=== PATIENT | female | born 1965 | race African-American/Black ===

== ENCOUNTER 2016-11-29 12:00 | Inpatient (IN) ==
[2016-11-29] MEDS ORDERED: APRESOLINE IV ONE (12:19)
[2016-11-29 12:34] LABS: MANUAL DIFF NEEDED? NO
[2016-11-29 12:35] LABS: BASO% 0.3 % (0.0-0.8); EOS# 0.19 X1000 (0.0-0.7); EOS% 2.6 % (0.0-10.0); HEMATOCRIT 44.8 % (37.0-47.0); HEMOGLOBIN 15.2 g/dL (12.0-16.0); IMM GRAN# 0.02 X1000 (0.0-0.04); IMM GRAN% 0.3 % (0.0-0.5); LYMPH# 2.33 X1000 (1.2-3.4); MCH 29.3 PG (27-31); MCHC 33.9 g/dL (33-37); MCV 86.5 FL (81-99); MONO% 9.6 % (1.7-9.3); MPV 11.5 FL (7.4-10.4); NEUT% 55.2 % (42.2-75.2); PLT 215 X1000 (130-400); RBC 5.18 XMIL (4.2-5.4)
--- NOTE | 2016-11-29 12:43 | Diag Imaging Result Doc PS360 ---
EXAM: CHEST-2 VIEWS HISTORY: CHF/elevated BP TECHNIQUE: PA and lateral COMMENT: There is no evidence of acute cardiac or pulmonary disease. Compared to 08/30/2016 there is been no significant change in the appearance of the chest. IMPRESSION: Stable chest. Electronically signed by Rojas Sullivan 11/29/2016 12:40 PM
--- NOTE | 2016-11-29 13:04 | EKG Report ---
Test Performed on : 11/29/2016 12:43:48 PM Test Reason : CP Blood Pressure : / mmHG Vent. Rate : 067 BPM Atrial Rate : 067 BPM P-R Int : 136 ms QRS Dur : 072 ms QT Int : 424 ms P-R-T Axes : 069 002 184 degrees QTc Int : 448 ms Normal sinus rhythm. Biatrial enlargement T wave abnormality, consider inferolateral ischemia Abnormal ECG When compared with ECG of 30-AUG-2016 10:00, Inverted T waves have replaced nonspecific T wave abnormality in Inferior leads Unconfirmed Result
[2016-11-29 13:13] LABS: ALBUMIN 4.1 g/dL (3.5-5.0); CALCIUM 9.7 mg/dL (8.8-10.2); POTASSIUM 3.9 mmol/L (3.5-5.1); TOTAL BILIRUBIN 0.5 mg/dL (0.20-1.00); TOTAL PROTEIN 8.1 g/dL (6.3-8.3)
[2016-11-29 13:32] LABS: CK INDEX 1.2 (0.0-2.5); CK-MB 2.54 ng/mL (0.0-5.0)
[2016-11-29] MEDS ORDERED: LABETALOL IV ONE (13:44)
--- NOTE | 2016-11-29 13:47 | PROVIDER DOCUMENTATION ---
This chart was entered by Wendy Castro Scribe, acting as scribe for Bette Corea MD. HPI-Cardiac General - General Chief Complaint: B/P Problems Stated Complaint: B/P PROB Time Seen by Provider: 11/29/16 12:08 Source: patient Allergies/Adverse Reactions: Patient Allergies Allergy/AdvReac Type Severity Reaction Status Date / Time Sulfa (Sulfonamide Allergy Unknown Verified 04/17/16 02:02 Antibiotics) Home Medications: Home Medication List Medication Instructions Recorded Confirmed Last Taken Type Clonidine [Catapres] 0.1 mg PO BID 01/15/13 04/17/16 1 Day Ago History Amlodipine [Norvasc] 10 mg PO DAILY #30 tablet 03/24/14 04/17/16 1 Day Ago Rx Alprazolam 1 mg PO BID 01/13/16 04/17/16 1 Day Ago History Meloxicam [Mobic] 15 mg PO DAILY #30 tablet 01/13/16 04/17/16 1 Day Ago Rx Clonidine HCl 0.1 mg PO TID PRN #30 tablet 03/17/16 04/17/16 Unknown Rx Amlodipine Besylate [Norvasc] 10 mg PO DAILY #30 tablet 04/17/16 Unknown Rx Clonidine HCl 0.2 mg PO Q8-12H PRN PRN #60 tablet 04/17/16 Unknown Rx Methylprednisolone [Medrol Dosepak] 4 mg PO DIRECTED #1 package 04/17/16 Unknown Rx Methylprednisolone 4 mg PO DIRECTED #21 tab.ds.pk 06/04/16 Unknown Rx Methylprednisolone [Medrol Dosepak] 4 mg PO DIRECTED #1 package 07/07/16 Unknown Rx Hydroxyzine HCl 25 mg PO DAILY #20 tablet 10/25/16 Unknown Rx - History of Present Illness-Cardiac Nature of Presenting Problem: 51 yo F presents to the ER with complaint of elevated BP and CP. Pt was sent from Dr. Jay's office. BP at PCP office was 206/135, was given a clonodine. Pt states she has some mild substernal CP associated. States she has a hx of aneurism and stroke. Onset/Duration: this morning Timing: intermittent Recent use of:: reports: no stimulants Nitro Today/Relief: reports: no nitro taken today Aspirin Treatment Today: reports: no aspirin today Prior Chest Pain/Cardiac Workup: reports: stress test Associated Symptoms: denies: abdominal pain, fever/chills, shortness of breath Review of Systems - Adult - REVIEW OF SYSTEMS - ADULT Constitutional: denies: chills, fever Eyes: reports: no symptoms reported Ears, Nose, Mouth & Throat: reports: no symptoms reported Cardiovascular: reports: chest pain. denies: palpitations Respiratory: denies: cough, shortness of breath Gastrointestinal: denies: diarrhea, nausea, vomiting Genitourinary: reports: no symptoms reported Musculoskeletal: reports: no symptoms reported Integumentary: reports: no symptoms reported Neurological: reports: no symptoms reported Psychiatric: reports: no symptoms reported Endocrine: reports: no symptoms reported Hematologic/Lymphatic: reports: no symptoms reported Allergic/Immunologic: reports: no symptoms reported All Other Systems: Reviewed and Negative Past History - Adult - PAST MEDICAL HISTORY-ADULT Review of Records: reports: Nursing Assessment Review, Medications Reviewed Cardiovascular: reports: CHF, HTN, hyperlipidemia Gastrointestinal: reports: GERD Neurological: reports: other (brain aneurysm) Psychiatric: reports: anxiety - PRIOR SURGERIES/PROCEDURES Surgical/Procedure History: reports: hysterectomy, BTL, other (brain aneurysm) - IMMUNIZATION STATUS Childhood Immunizations: See Nurse Assessment Flu Vaccine: See Nurse Assessment Physical Exam-General - PHYSICAL EXAM-ADULT Initial Vital Signs Reviewed: Yes - CONSTITUTIONAL General Appearance: alert, no apparent distress - EYES Eyes: PERRL/EOMI, pink conjunctivae - HEAD, EARS, NOSE, MOUTH & THROAT HENMT: normocephalic/atraumatic, normal ENT inspection - NECK Neck: supple, normal inspection - RESPIRATORY Respiratory: no respiratory distress, no accessory muscle use - CARDIOVASCULAR Cardiovascular: normal peripheral pulses, regular rate, rhythm. negative: no edema (mild to bilat LE) - MUSCULOSKELETAL Back Exam: no CVA tenderness, no vertebral tenderness Extremity: normal range of motion, non-tender, normal gait, normal inspection - SKIN Integumentary: normal color, warm/dry - NEUROLOGIC Neurologic: grossly normal, no motor/sensory deficits - PSYCHIATRIC Psych/Mental Status: normal mood/affect, normal thought content, normal thought process, oriented x 3 Progress - PLAN OF CARE/RESULTS Progress/Plan/Lab Results: Vital Signs - 8 hr 11/29/16 12:04 Temperature 98 F Pulse Rate 79 Respiratory Rate 20 Blood Pressure 175/131 O2 Sat by Pulse Oximetry 96 Laboratory Results - last 24 hr 11/29/16 11/29/16 11/29/16 12:23 12:23 12:23 WBC RBC Hgb Hct MCV MCH MCHC RDW Std Deviation Plt Count MPV Immature Gran % (Auto) Neut % (Auto) Lymph % (Auto) [place] % (Auto) Eos % (Auto) Baso % (Auto) Immature Gran # (Auto) Neut # (Auto) Lymph # (Auto) [place] # (Auto) Eos # (Auto) Baso # (Auto) Sodium 139 Potassium 3.9 Chloride 102 Carbon Dioxide 24 L Anion Gap 14 BUN 25 H Creatinine 1.3 H Estimated GFR/1.73 m2 43 BUN/Creatinine Ratio 19 Glucose 95 Calculated Osmolality 282 Calcium 9.7 Magnesium 2.0 Total Bilirubin 0.50 AST 25 ALT 21 Alkaline Phosphatase 59 Creatine Kinase 219 H Creatine Kinase Index 1.2 CK-MB (CK-2) 2.54 Troponin T 0.010 Etp-U-Qubjsbnfdmg Pept 532 H Total Protein 8.1 Albumin 4.1 Globulin 4.0 Albumin/Globulin Ratio 1.0 11/29/16 12:23 WBC 7.28 RBC 5.18 Hgb 15.2 Hct 44.8 MCV 86.5 MCH 29.3 MCHC 33.9 RDW Std Deviation 14.5 Plt Count 215 MPV 11.5 H Immature Gran % (Auto) 0.3 Neut % (Auto) 55.2 Lymph % (Auto) 32.0 [place] % (Auto) 9.6 H Eos % (Auto) 2.6 Baso % (Auto) 0.3 Immature Gran # (Auto) 0.02 Neut # (Auto) 4.02 Lymph # (Auto) 2.33 [place] # (Auto) 0.70 H Eos # (Auto) 0.19 Baso # (Auto) 0.02 Sodium Potassium Chloride Carbon Dioxide Anion Gap BUN Creatinine Estimated GFR/1.73 m2 BUN/Creatinine Ratio Glucose Calculated Osmolality Calcium Magnesium Total Bilirubin AST ALT Alkaline Phosphatase Creatine Kinase Creatine Kinase Index CK-MB (CK-2) Troponin T Wik-[id number]-[id number] Pept Total Protein Albumin Globulin Albumin/Globulin Ratio Orders Category Date Time Status Cardiac Monitoring DIRECTED Care 11/29/16 12:10 Active Saline Loc NOW Care 11/29/16 12:10 Active CHEST-2 VIEWS [RAD] Stat Exams 11/29/16 12:10 Completed CBC WITH ELECTRONIC DIFF [HEME] Stat Lab 11/29/16 12:23 Completed CK PROFILE [SP CHEM] Stat Lab 11/29/16 12:23 Completed COMPREHENSIVE METABOLIC PANEL [CHEM] Stat Lab 11/29/16 12:23 Completed MAGNESIUM [CHEM] Stat Lab 11/29/16 12:23 Completed PRO B-NATRIURETIC PEPTIDE Stat Lab 11/29/16 12:23 Completed TROPONIN T Stat Lab 11/29/16 12:[address] W/POSS RFLX CULT [URINALYSIS] Stat Lab 11/29/16 12:09 Uncollected Hydralazine [Apresoline] Med 11/29/16 12:19 Discontinued 20 mg IV NOW ONE Labetalol Med 11/29/16 13:44 Discontinued 15 mg IV NOW ONE EKG [EKG] Stat Ther 11/29/16 12:10 Draft Result Diagrams: 11/29/16 12:23 11/29/16 12:23 - XRAY 1 XRAY Study: Chest Impression: Normal (stable chest, per radiologist) - CONSULTS/PCP/HOSPITALIST Notification #1 *Consult/PCP/Hospitalist*: Dr. Burgos Time Discussed: 13:47 Consult Disposition: Will see in ED, Admit Departure - Departure Date of Disposition Decision: 11/29/16 Time of Disposition Decision: 13:47 DIAGNOSIS: Chest pain, Hypertensive urgency Disposition: ADMITTED INPATIENT 09 Certified Medical Emergency: Emergent Condition: Stable Referrals and Follow-Ups: Mahad Hyde MD [Primary Care Provider] - - Critical Care Note This patient required my direct & personal management of CC.: No This chart was documented by the indicated scribe, (Wendy Castro Scribe) and accurately reflects the services I performed and decisions made by me, Bette Corea MD, as attested by the provider's signature.
[2016-11-29 15:01] LABS: BILIRUBIN URINE NEGATIVE (NEGATIVE); BLOOD URINE TRACE (NEGATIVE); CLARITY CLEAR (CLEAR); COLOR YELLOW; GLUCOSE URINE NEGATIVE (NEGATIVE); LEUKOCYTES URINE 2+ (NEGATIVE); NITRITE URINE NEGATIVE (NEGATIVE); PROTEIN URINE 2+(100 mg/dL) mg/dL (NEGATIVE); UROBILINOGEN URINE NORMAL
[2016-11-29 15:31] LABS: URINE CULTURE PL NEEDED? YES; URINE EPITHELIAL CELLS >10 /HPF (<10); URINE RBC <10 /HPF (<10)
[2016-11-29 15:33] LABS: URINE CAST NONE SEEN /LPF; URINE CRYSTAL NONE SEEN /HPF; URINE SMALL ROUND CELLS TRANSITIONAL PRESENT; URINE SOURCE CLEAN CATCH
[2016-11-29] MEDS ORDERED: XANAX PO PRN (18:18)
[2016-11-29] MEDS ORDERED: APRESOLINE IV PRN (18:19)
[2016-11-29] MEDS ORDERED: TYLENOL PO PRN (21:13)
[2016-11-29] MEDS: CATAPRES PO SCH (21:30)
[2016-11-30] MEDS: CATAPRES PO SCH (05:59)
[2016-11-30 07:05] LABS: HEMATOCRIT 45.4 % (37.0-47.0); HEMOGLOBIN 14.9 g/dL (12.0-16.0); MCH 28.7 PG (27-31); MCHC 32.8 g/dL (33-37); MCV 87.3 FL (81-99); MPV 11.8 FL (7.4-10.4); RBC 5.2 XMIL (4.2-5.4)
[2016-11-30 07:20] LABS: AGAP 15; ALBUMIN 3.7 g/dL (3.5-5.0); ALKALINE PHOSPHATASE 50 U/L (32-104); BUN 26 mg/dL (8-22); CALCIUM 9.4 mg/dL (8.8-10.2); CHLORIDE 99 mmol/L (98-107); COSMO 277; GOT 21 U/L (10-30); GPT 19 U/L (10-36); HDL 44 mg/dL (45-65); LDL 95 mg/dL; POTASSIUM 3.5 mmol/L (3.5-5.1); SODIUM 136 mmol/L (136-145); TCO2 22 mmol/L (25-35); TOTAL PROTEIN 7.3 g/dL (6.3-8.3); TRIGLYCERIDES 82 mg/dL (35-135); VLDL 16 mg/dL
[2016-11-30 07:32] VITALS: BP 128/91
[2016-11-30] MEDS ORDERED: HYDROCHLOROTHIAZIDE PO SCH (09:00)
[2016-11-30] MEDS ORDERED: PRINIVIL PO SCH (09:00)
--- NOTE | 2016-11-30 12:16 | HISTORY AND PHYSICAL ---
PRIMARY CARE PHYSICIAN: Dr. Mahad Hyde. CHIEF COMPLAINT: "My blood pressure is high." HISTORY OF PRESENT ILLNESS: This is a 51-year-old female who presented to the emergency room from Dr. Hyde's office after being found have to have a blood pressure of 206/135. She was given a clonidine in his office. On arrival to the emergency room her blood pressure was 175/131. She was given IV labetalol as well as Apresoline in the ER. Blood pressures did decrease and over the last 12 hours she has ranged in the 120s/80s. She did have some substernal chest pain when pressure was high, but she stated that by the time she got to the emergency room, the chest pain had resolved. Troponin was negative. She is being admitted for further evaluation and treatment. PAST MEDICAL HISTORY: Hypertension, congestive heart failure, gastroesophageal reflux disease and hyperlipidemia. PAST SURGICAL HISTORY: Hysterectomy, tubal ligation, brain aneurysm. SOCIAL HISTORY: She smokes about half a pack a day. She has occasional alcohol use. She does use marijuana. ALLERGIES: Sulfa with unknown reaction. HOME MEDICATIONS: Clonidine, Xanax, Prinivil and hydrochlorothiazide. REVIEW OF SYSTEMS: A 14 point review of systems is discussed with the patient with pertinent positives stated in HPI. She denied any palpitations, syncope, dizziness, cough, fever, chills, PND, orthopnea, nausea, vomiting, diarrhea, constipation, black or bloody vomitus, black or bloody stools, hematuria. PHYSICAL EXAMINATION: VITAL SIGNS: Blood pressure is 123/80, with a heart rate of 71, respirations are 20, temperature is 97.6 degrees with room air saturations of 98-100%. HEENT: Head is normocephalic, atraumatic. Pupils equal, round, react to light. EOMs are intact. Sclerae anicteric. Mucous membranes are moist. NECK: Supple. Trachea midline. CARDIOVASCULAR: Regular rate and rhythm. S1 and S2 appreciated. PULMONARY: Breath sounds are clear with no increased work of breathing noted. GASTROINTESTINAL: Abdomen is soft, nontender, nondistended with bowel sounds in all 4 quadrants. EXTREMITIES: No clubbing, cyanosis. She does have some trace pretibial edema bilateral. NEUROLOGIC: She is alert and oriented x3. DIAGNOSTICS: WBC is 7.2, with hemoglobin 15.2, hematocrit 44.8, and platelets of 215,000. Sodium is 139, potassium 3.9, BUN 25, creatinine 1.3 with a glucose of 95. Troponin is less than 0.010. Urinalysis revealed negative nitrites with less than 10 microscopic red blood cells, 10-20 microscopic white blood cells, and 2+ bacteria. Urine culture is pending. Chest x-ray revealed a stable chest with no acute pathology. ASSESSMENT: 1. Hypertensive urgency. 2. Hypertension. 3. History of congestive heart failure. 4. Gastroesophageal reflux disease. 5. Chronic kidney disease. PLAN: She will be admitted to the hospital, placed on telemetry. We will identify her home medications and continue as appropriate. We will trend labs in the morning. Further treatments pending hospital course. Dictated by TIGRE Doe for Xander Burgos MD cc: TIGRE Doe MD
--- NOTE | 2016-12-01 08:08 | DISCHARGE SUMMARY ---
ADMISSION DATE: 11/29/2016 DISCHARGE DATE: 11/30/2016 DIAGNOSES: 1. Hypertensive urgency. 2. Chest pain, resolved. 3. History of congestive heart failure. 4. Gastroesophageal reflux disease. 5. Hyperlipidemia. 6. Chronic kidney disease. DIAGNOSTICS: Chest x-ray revealed no evidence of acute cardiac or pulmonary disease. HOSPITAL COURSE: Ms. Manjarrez presented to the emergency room from her primary care physician's office after being found to have a blood pressure of 206/135. She was given clonidine at the doctor's office, and her initial blood pressure was 175/131. She was given labetalol IV as well as hydralazine IV in the emergency room and blood pressures did slowly decrease, and she has been in the 120s/60s to 80s in the last 12 hours. She stated that her chest pain resolved shortly after arriving in the emergency room. She has had no further chest pain. LABORATORY DATA: She did have a creatinine of 1.3. On review of her old records, her creatinine looks like 1.2-1.7 over the last 3 years. DISCHARGE PHYSICAL EXAMINATION: Cardiovascular: Regular rate and rhythm. S1 and S2 appreciated. Pulmonary: Breath sounds are clear with no increased work of breathing noted. Gastrointestinal: Abdomen is soft, nontender, nondistended. Bowel sounds in all 4 quadrants. Extremities: No clubbing, cyanosis, or edema. Calves are nontender. Pulses are palpable x4. DISCHARGE MEDICATIONS: 1. Clonidine 0.1 mg p.o. 3 times a day. 2. Xanax 1 mg p.o. b.i.d. 3. Prinivil 40 mg p.o. daily. 4. Hydrochlorothiazide 25 mg p.o. daily. DISCHARGE ACTIVITY: As tolerated. DISCHARGE FOLLOWUP: She is to follow up with her primary care physician in 1-2 weeks. She is being discharged home in stable condition with family members. TIME SPENT: This is a greater than 30 minute discharge. Dictated by TIGRE Doe for Xander Burgos MD cc: TIGRE Doe MD
== END 2016-11-30 09:47 | disposition home or self-care (01) ==
LOC: P.ED 12:00 → P.MEDSURG 17:12
PROVIDERS: ATTEND Family Medicine

== ENCOUNTER 2018-10-22 12:47 | Inpatient (IN) ==
[2018-10-22 14:06] LABS: BASO# 0.02 X1000 (0.0-0.2); BASO% 0.2 % (0.0-0.8); EOS# 0.15 X1000 (0.0-0.7); EOS% 1.8 % (0.0-10.0); HEMATOCRIT 40.7 % (37.0-47.0); HEMOGLOBIN 13.7 g/dL (12.0-16.0); IMM GRAN# 0.01 X1000 (0.0-0.04); IMM GRAN% 0.1 % (0.0-0.5); LYMPH# 2.58 X1000 (1.2-3.4); MCH 28.6 PG (27-31); MCHC 33.7 g/dL (33-37); MONO# 0.77 X1000 (0.11-0.59); MONO% 9.3 % (1.7-9.3); MPV 12.9 FL (7.4-10.4); NEUT# 4.78 X1000 (1.4-6.5); NEUT% 57.6 % (42.2-75.2); PLT 236 X1000 (130-400); RBC 4.79 XMIL (4.2-5.4); RDW 14.5 % (11.5-14.5); WBC 8.31 X1000 (4.8-10.8)
--- NOTE | 2018-10-22 14:15 | EKG Report ---
Test Performed on : 10/22/2018 1:02:41 PM Test Reason : ? PAPLPITATIONS Blood Pressure : / mmHG Vent. Rate : 066 BPM Atrial Rate : 066 BPM P-R Int : 144 ms QRS Dur : 126 ms QT Int : 482 ms P-R-T Axes : 102 -21 188 degrees QTc Int : 505 ms Normal sinus rhythm. Left ventricular hypertrophy with QRS widening and repolarization abnormality Inferior infarct , age undetermined Cannot rule out Anterior infarct , age undetermined Abnormal ECG When compared with ECG of 18-APR-2018 08:55, Significant changes have occurred Unconfirmed Result
[2018-10-22] MEDS ORDERED: NITROGLYCERIN SL ONE (14:38)
[2018-10-22 14:39] LABS: ALBUMIN 3.4 g/dL (3.5-5.0); CALCIUM 8.8 mg/dL (8.8-10.2); CREATININE 1.9 mg/dL (0.5-0.9); POTASSIUM 3.7 mmol/L (3.5-5.1); TOTAL BILIRUBIN 0.2 mg/dL (0.20-1.00); TOTAL PROTEIN 7.2 g/dL (6.3-8.3)
[2018-10-22] MEDS ORDERED: VASOTEC IV ONE (14:39)
--- NOTE | 2018-10-22 15:48 | Diag Imaging Result Doc PS360 ---
EXAM: CHEST-PORTABLE HISTORY: dyspnea TECHNIQUE: Single view of the chest was performed portably. COMPARISON: 06/25/2018 FINDINGS: The cardiomediastinal silhouette is within normal limits for portable exam.. The pulmonary vasculature is not congested. There is mild interstitial prominence similar to prior study. No focal infiltrate, effusion, or pneumothorax is appreciated. IMPRESSION: Stable mild interstitial prominence. No acute cardiopulmonary abnormality is identified. Electronically signed by Yael Esposito 10/22/2018 3:46 PM
[2018-10-22] MEDS ORDERED: APRESOLINE IV ONE (16:34)
[2018-10-22] MEDS ORDERED: LABETALOL IV ONE ×2 (17:26→17:45)
--- NOTE | 2018-10-22 18:00 | Diag Imaging Result Doc PS360 ---
EXAM: CT HEAD W/O CONTRAST INDICATION: elevated blood pressure, blurry vision TECHNIQUE: This exam was performed using automated exposure control, adjustment of mA or kV according to patient size, and/or use of iterative reconstruction technique. COMPARISON: 12/16/2016 FINDINGS: There is a pterional craniectomy defect on the left and an aneurysm clip adjacent to the anterior clinoid on the left, stable. There is no definite acute infarct given the limited sensitivity of CT versus MRI. There is no discrete intracranial mass, mass effect, or intracranial hemorrhage. Surrounding soft tissues are grossly unremarkable. Aside from the craniectomy defect, the calvaria is intact. IMPRESSION: Stable CT head with no evidence of acute intracranial pathology. Electronically signed by Waqas Rich 10/22/2018 5:58 PM
[2018-10-22] MEDS ORDERED: MORPHINE IV ONE (18:54)
[2018-10-22] MEDS ORDERED: ZOFRAN IV ONE (18:54)
--- NOTE | 2018-10-22 19:22 | PROVIDER DOCUMENTATION ---
This chart was entered by Michelle Chand Scribe, acting as scribe for Jessica Blanco MD. HPI-General Adult - General Chief Complaint: General Adult Stated Complaint: DR HYDE REF- Time Seen by Provider: 10/22/18 13:06 Source: patient Allergies/Adverse Reactions: Patient Allergies Allergy/AdvReac Type Severity Reaction Status Date / Time Sulfa (Sulfonamide Allergy Unknown Verified 06/25/18 11:45 Antibiotics) Home Medications: Home Medication List Medication Instructions Recorded Confirmed Last Taken Type Alprazolam 1 mg PO TID 11/29/16 06/25/18 06/25/18 07:00 History Clonidine HCl 0.1 mg PO TID 11/29/16 06/25/18 06/25/18 07:00 History Hydrochlorothiazide 25 mg PO QAM #90 tablet 11/30/16 06/25/18 06/25/18 07:00 Rx Amlodipine Besylate 10 mg PO DAILY 10/11/17 06/25/18 06/25/18 07:00 History Azithromycin [Zithromax Z-Jeremy] 250 mg PO DIRECTED #1 pkg 06/25/18 Unknown Rx D-Methorphan/P-Epd/Bpm [Bromfed Dm 5 ml PO Q4H PRN #120 ml 06/25/18 Unknown Rx Liquid] Methylprednisolone [Medrol Dosepak] 1 packet PO DIRECTED #1 pkg 06/25/18 Unknown Rx - History of Present Illness -Gen Adult Nature of Presenting Problems: Pt is 53/F presenting to ED from Dr. Talbert's office. He told her that her BP was high and that she was having palpitations. Pt has hx of CHF. She sts in ED that she has been having SOB w/ any exertion for the last 2 weeks. Location of Pain/Injury: reports: other (SOB) Pain Radiation: reports: no radiation Quality of Pain: reports: none Severity: reports: moderate Onset/Duration: reports: other (2 weeks) Timing: reports: still present Context/Activities at Onset: reports: none Modifying Factors: improves with: nothing Associated Symptoms: reports: shortness of breath. denies: chest pain, cough, dizziness, EENT symptoms, fever/chills, syncope, vomiting Similar Symptoms Previously?: Yes Recently seen or treated by another doctor?: Yes Review of Systems - Adult - REVIEW OF SYSTEMS - ADULT Constitutional: reports: no symptoms reported. denies: chills, fever Eyes: reports: no symptoms reported Ears, Nose, Mouth & Throat: reports: no symptoms reported Cardiovascular: reports: no symptoms reported Respiratory: reports: no symptoms reported, shortness of breath. denies: cough, wheezing Gastrointestinal: denies: no symptoms reported Genitourinary: reports: no symptoms reported Musculoskeletal: reports: no symptoms reported Integumentary: reports: no symptoms reported Neurological: reports: no symptoms reported. denies: dizziness/vertigo, headache/migraines Psychiatric: reports: no symptoms reported Endocrine: reports: no symptoms reported Hematologic/Lymphatic: reports: no symptoms reported Allergic/Immunologic: reports: no symptoms reported All Other Systems: Reviewed and Negative Past History - Adult - PAST MEDICAL HISTORY-ADULT Review of Records: reports: Old Records Reviewed, Nursing Assessment Review, Medications Reviewed, Social history reviewed & non-contributory. Major Childhood Illnesses: reports: denies history Cardiovascular: reports: CHF, HTN, hyperlipidemia Respiratory: reports: denies history Gastrointestinal: reports: GERD Obstetrical/Gynecological: reports: denies history Genitourinary: reports: denies history Musculoskeletal: reports: denies history Neurological: reports: other (brain aneurysm) Psychiatric: reports: anxiety Endocrine/Immune: reports: denies history Other Conditions: reports: denies history - PRIOR SURGERIES/PROCEDURES Surgical/Procedure History: reports: hysterectomy, BTL, other (brain aneurysm) - IMMUNIZATION STATUS Childhood Immunizations: See Nurse Assessment Flu Vaccine: See Nurse Assessment - FAMILY HISTORY Family History: reviewed, not pertinent - SOCIAL HISTORY Smoking: quit greater than 1 year Substance Use: none/never Alcohol Use Frequency: occasionally Living Situation: family Physical Exam-General - PHYSICAL EXAM-ADULT Initial Vital Signs Reviewed: Yes - CONSTITUTIONAL General Appearance: appears well, alert, no apparent distress - EYES Eyes: PERRL/EOMI, pink conjunctivae - HEAD, EARS, NOSE, MOUTH & THROAT HENMT: normocephalic/atraumatic, moist mucous membranes, normal ENT inspection, TMs normal, pharynx normal - NECK Neck: non-tender, full range of motion, supple - RESPIRATORY Respiratory: lungs clear - CARDIOVASCULAR Cardiovascular: regular rate, rhythm, JVD, other (hepatic reflux) - LYMPHATIC Lymphatic: no adenopathy - MUSCULOSKELETAL Extremity: normal range of motion, non-tender, normal gait, normal inspection - SKIN Integumentary: normal color, warm/dry - NEUROLOGIC Neurologic: grossly normal - PSYCHIATRIC Psych/Mental Status: normal mood/affect, normal thought content, normal thought process, oriented x 3 Progress - PLAN OF CARE/RESULTS Progress/Plan/Lab Results: Vital Signs - 8 hr 10/22/18 12:53 Temperature 98 F Pulse Rate 70 Respiratory Rate 18 Blood Pressure 137/103 O2 Sat by Pulse Oximetry 99 Orders Category Date Time Status Nursing- Obtain EKG ONCE Care 10/22/18 13:00 Active Saline Loc NOW Care 10/22/18 13:11 Active BNP [PRO B-NATRIURETIC PEPTIDE] Stat Lab 10/22/18 13:13 Uncollected CBC WITH DIFF [HEME] Stat Lab 10/22/18 13:11 Ordered COMPREHENSIVE METABOLIC PANEL [CHEM] Stat Lab 10/22/18 13:11 Ordered EKG [EKG] Stat Ther 10/22/18 13:00 Ordered Result Diagrams: 10/22/18 13:25 10/22/18 13:25 - EKG 1 Time of EKG reading by physician:: 13:02 EKG Read and Signed by:: Jessica Blanco EKG Interpretation (*Must complete 3 of following elements*): Abnormal (normal sinus rhythm, left ventricular hypertrophy with QRS widening and repolarization abnormality, Inferior infarct, age undetermined, Cannot rule out Anterior infarct, age undetermined. Abnormal ECG) Rate: 66 Rhythm: Normal sinus [place]: normal PA Interval: normal ST Wave: normal Departure - Departure Date of Disposition Decision: 10/22/18 Time of Disposition Decision: 19:21 DIAGNOSIS: Hypertension, accelerated Disposition: ADMITTED INPATIENT 09 Certified Medical Emergency: Emergent Condition: Critical Referrals and Follow-Ups: Mahad Hyde MD [Primary Care Provider] - - Critical Care Note This patient required my direct & personal management of CC.: Yes Total Time (mins): 31 Critical Care Statement: This patient required my direct personal management to treat or rule out processes, the absence of which, could potentiallly result in sudden, clinically significant life or limb threatening deterioration. Attestation - Physician/ KUNAL Attestation Patient care was provided by Advanced Practice Provider:: No The physician spent face to face time with patient:: Yes Advanced Practice Provider documentation review:: Supervising physician onsite and consulted in the evaluation and care of this patient. The physician did have a face to face encounter with the patient. This chart was documented by the indicated scribe, (Michelle Chand, Christian[place]) and accurately reflects the services I performed and decisions made by , Jessica Blanco MD, as attested by the provider's signature.
[2018-10-22] MEDS: CARDENE 20 MG/NS 20 MG/200 ML PIGGYBACK IV SCH ×2 (19:37→20:16)
[2018-10-22] MEDS ORDERED: ZOFRAN IV PRN (23:04)
[2018-10-23 03:12] LABS: UR CREAT RANDOM 41.8 mg/dL (11-20); UR PROT RANDOM 165.4 mg/dL
[2018-10-23] MEDS: CARDENE 20 MG/NS 20 MG/200 ML PIGGYBACK IV SCH ×2 (05:53→13:15)
[2018-10-23 07:14] LABS: BASO# 0.01 X1000 (0.0-0.2); BASO% 0.1 % (0.0-0.8); EOS# 0.11 X1000 (0.0-0.7); EOS% 1.4 % (0.0-10.0); HEMATOCRIT 42.2 % (37.0-47.0); HEMOGLOBIN 14.1 g/dL (12.0-16.0); IMM GRAN# 0.01 X1000 (0.0-0.04); IMM GRAN% 0.1 % (0.0-0.5); LYMPH% 32.7 % (20.5-51.1); MCH 28.2 PG (27-31); MCHC 33.4 g/dL (33-37); MCV 84.4 FL (81-99); MONO# 0.91 X1000 (0.11-0.59); MONO% 11.9 % (1.7-9.3); MPV 12.5 FL (7.4-10.4); NEUT# 4.11 X1000 (1.4-6.5); NEUT% 53.8 % (42.2-75.2); PLT 210 X1000 (130-400); RDW 14.7 % (11.5-14.5); WBC 7.65 X1000 (4.8-10.8)
[2018-10-23 07:27] LABS: CALCIUM 8.8 mg/dL (8.8-10.2); CREATININE 1.6 mg/dL (0.5-0.9); POTASSIUM 3.7 mmol/L (3.5-5.1)
[2018-10-23] MEDS: CATAPRES PO SCH ×3 (08:31→17:06)
[2018-10-23] MEDS: TYLENOL PO PRN (08:31)
[2018-10-23] MEDS: XANAX PO SCH ×3 (08:31→17:06)
--- NOTE | 2018-10-23 08:51 | Diag Imaging Result Doc PS360 ---
EXAM: US RENAL 2 (RETROPER) COMPLETE HISTORY: kuldip TECHNIQUE: Renal ultrasound COMPARISON: None. FINDINGS: The right kidney measures 10.8 x 4.0 x 4.2 cm. There is increased renal echotexture. Normal cortical thickness. Slight distention to the right renal pelvis. No stone. No solid mass. The urinary bladder is distended and appears normal. The left kidney measures 11.4 x 4.1 x 5.0 cm. Normal cortical thickness. There is increased renal echotexture. No hydronephrosis. No renal mass. IMPRESSION: Increased renal echotexture which can be seen with medical renal disease. Electronically signed by Willy Kuhn 10/23/2018 8:48 AM
[2018-10-23] MEDS ORDERED: NS 1,000 ML IV SCH (12:15)
[2018-10-23] MEDS: NS 1,000 ML IV SCH (13:12)
[2018-10-23] MEDS: APRESOLINE PO SCH ×2 (13:13→17:06)
[2018-10-23] MEDS: NORVASC PO SCH (13:15)
--- NOTE | 2018-10-23 14:31 | HISTORY AND PHYSICAL ---
PRIMARY CARE PHYSICIAN: Dr. Hyde. CHIEF COMPLAINT: Elevated blood pressure and palpitations sent from her primary physician's office to the ER for evaluation. HISTORY OF PRESENT ILLNESS: This is a 53-year-old female who presents to [facility] ER from her primary care physician's office after she was found to have a high blood pressure. She was having some palpitations and shortness of breath. She states that she has also had a headache and blurred vision and those have been present for the past 2 weeks. She states she takes her medications as prescribed. When she arrived to the emergency room, she had a blood pressure of 137/103. Approximately an hour and a half later, it went up to 207/143, and remained in the 190s over the 1 teens. She was given hydralazine IV in the emergency room, labetalol, and enalapril all of which were not effective so she was started on a Cardene drip and admitted to the intensive care unit for further evaluation and treatment. PAST MEDICAL HISTORY: Hypertension, CHF, hyperlipidemia, GERD, a brain aneurysm, and anxiety. PAST SURGICAL HISTORY: Hysterectomy, bilateral tubal ligation and a brain aneurysm repair. FAMILY HISTORY: Reviewed and noncontributory. SOCIAL HISTORY: She currently lives with family. Denies any tobacco use, but is a former smoker and denies any alcohol or illicit drug use. ALLERGIES: Sulfa drugs. HOME MEDICATIONS: She takes alprazolam 1 mg p.o. t.i.d., amlodipine 10 mg p.o. daily, and clonidine 0.1 mg p.o. t.i.d. LABORATORY DATA: White blood cell count of 8.31, hemoglobin 13.7, hematocrit 40.7, and platelets 236,000. Sodium 137, potassium 3.7, chloride 22, BUN of 27, creatinine 1.9, and glucose 136. Troponin was negative. ProBNP of 1226. TSH of 1.57. Random creatinine was 41.8, total protein 165.4. Random sodium 109. Random nitrogen urea 294. EKG showed normal sinus rhythm at 66. Chest x-ray showed stable interstitial prominence. No acute cardiopulmonary abnormality identified. CT of the head showed stable CT of the head with no evidence of acute intracranial pathology. Renal ultrasound showed increased renal echotexture which can be seen with medical renal disease. REVIEW OF SYSTEMS: She denied any fever or chills. She has had blurred vision, headache, shortness of breath, elevated blood pressure, and palpitations. Denied any abdominal pain, constipation, diarrhea, burning or hurting with urination. PHYSICAL EXAMINATION: On arrival, she had a temperature of 98 degrees, pulse 70, respirations 18, blood pressure 137/103, and saturating 99% on room air. Blood pressure got as high as 207/143, and remained elevated. Currently, she was at 141/102 on her Cardene drip. HEENT: Normocephalic, atraumatic. Normal ENT inspection. Oropharynx and nares are clear. EYES: Pupils are equal, round, and reactive to light and accommodation. Extraocular movements are intact. NECK: Normal inspection. Normal range of motion. LUNGS: Clear to auscultation bilaterally with equal lung expansion and chest wall movement. HEART: Regular rate and rhythm. No murmurs, rubs, or gallops. ABDOMEN: Soft, nontender, and nondistended. Bowel sounds are present x4 quadrants. MUSCULOSKELETAL: She has 5/5 strength x4 extremities. NEUROLOGICAL: The cranial nerves 2-12 appear grossly intact. ASSESSMENT: 1. Accelerated hypertension. 2. Acute kidney injury. 3. GERD 4. Hyperlipidemia. PLAN: She was admitted to the intensive care unit and placed on a Cardene drip. Healthy heart diet. Telemetry. She had an echocardiogram done in May of 2018 that did show an ejection fraction of 70% with normal LV function so we will not repeat that at this time. Continue home medications as previously identified. We will give her heparin 5000 units subcu q.12h for DVT prophylaxis. Further orders after being seen by attending, and repeat her CBC and BMP in the morning. Dictated by TIGRE Connolly for Lucho Vazquez MD cc: TIGRE Connolly MD Dr. Awoyni
--- NOTE | 2018-10-23 14:34 | HISTORY AND PHYSICAL ---
HISTORY AND PHYSICAL - ADDENDUM: Patient came in with elevated blood pressure. She is a 53-year- old with hypertension, I am not sure if she has got reported history of heart failure, I am sure she has got some chronic renal failure. She came in with elevated blood pressure and her creatinine has kind of been up and down. Symptomatic chest pain, palpitations. She was seen by Dr. Hyde He was concerned about maybe atrial fibrillation with rapid ventricular response. I think that is what I understood, but I do not think she had atrial fibrillation. In any case, she was sent here and her blood pressure was extremely high and she was eventually placed on a nicardipine drip and admitted to the ICU. PHYSICAL EXAMINATION: Was really unremarkable. I do not appreciate volume overload or rales. She appears to be well. She appears to be euvolemic. PROBLEM LIST: 1. Malignant hypertension. She is on Norvasc and clonidine. I am suspicious she is probably not very compliant, but we will pursue secondary hypertension workup. 2. Acute on chronic renal failure. We will monitor renal function, avoid nephrotoxic drugs. So ACEs and ARBs are probably, we will avoid. Continue to follow closely. 3. Acute on chronic renal failure. Continue to follow kidney function and evaluate for renal artery stenosis with Dopplers. We will continue to monitor. This is a [id number] encounter with Blanche Samaniego. TIME SPENT: A 32 minute critical care time for hypertension, urgency requiring IV nicardipine. cc: Lucho Vazquez MD MTDD
[2018-10-23] MEDS: HEPARIN SUBQ SCH (22:14)
[2018-10-24] MEDS: NS 1,000 ML IV SCH (02:03)
[2018-10-24] MEDS: CARDENE 20 MG/NS 20 MG/200 ML PIGGYBACK IV SCH ×2 (06:14→14:33)
[2018-10-24 06:33] LABS: BASO# 0.02 X1000 (0.0-0.2); BASO% 0.3 % (0.0-0.8); EOS# 0.16 X1000 (0.0-0.7); EOS% 2.2 % (0.0-10.0); HEMATOCRIT 41.9 % (37.0-47.0); HEMOGLOBIN 13.8 g/dL (12.0-16.0); IMM GRAN# 0.02 X1000 (0.0-0.04); IMM GRAN% 0.3 % (0.0-0.5); LYMPH# 2.42 X1000 (1.2-3.4); LYMPH% 32.5 % (20.5-51.1); MCH 28.3 PG (27-31); MCHC 32.9 g/dL (33-37); MONO# 0.85 X1000 (0.11-0.59); MONO% 11.4 % (1.7-9.3); MPV 12.5 FL (7.4-10.4); NEUT# 3.97 X1000 (1.4-6.5); NEUT% 53.3 % (42.2-75.2); PLT 221 X1000 (130-400); RBC 4.87 XMIL (4.2-5.4); RDW 14.8 % (11.5-14.5); WBC 7.44 X1000 (4.8-10.8)
[2018-10-24 06:47] LABS: CALCIUM 8.7 mg/dL (8.8-10.2); CREATININE 1.6 mg/dL (0.5-0.9); POTASSIUM 3.7 mmol/L (3.5-5.1)
[2018-10-24] MEDS: HEPARIN SUBQ SCH ×2 (08:11→20:10)
[2018-10-24] MEDS: XANAX PO SCH ×3 (08:12→17:30)
[2018-10-24] MEDS: CATAPRES PO SCH ×3 (08:12→17:30)
[2018-10-24] MEDS: NORVASC PO SCH (08:12)
[2018-10-24] MEDS: APRESOLINE PO SCH ×3 (08:12→17:30)
[2018-10-24] MEDS: TYLENOL PO PRN (08:39)
--- NOTE | 2018-10-24 11:09 | PROGRESS NOTE ---
DATE: 10/24/2018 SUBJECTIVE: Patient has no major complaints. OBJECTIVE: Blood pressure 142/93, heart rate 76, respiratory rate 28, temperature 98 degrees, 100% on room air. Cardiovascular: Regular rate and rhythm. Pulmonary: Bilateral breath sounds clear to auscultation. GI: Soft, nontender, nondistended. Bowel sounds were positive. Laboratory Data: White count 7, hemoglobin and hematocrit 13 and 41, platelets 221,000. Creatinine 1.6. PROBLEM LIST: 1. Malignant hypertension, hypertensive urgency. She is on Norvasc and clonidine. I am bumping up her hydralazine. 2. Acute on chronic renal failure. She is stabilizing but I do not think she is going to improve much and I think she has got chronic renal disease. At this point, it is stage IIIB. We will follow. DISPOSITION: We are trying to get her off her drip and then home, hopefully in the next couple of days. cc: Lucho Vazquez MD
--- NOTE | 2018-10-24 13:59 | Diag Imaging Result Doc PS360 ---
EXAM: US DUPLEX RENAL ARTY/VEIN LMTD HISTORY: evaluate for renal artery stenosis TECHNIQUE: Renal Doppler arterial ultrasound COMPARISON: Renal ultrasound from 10/23/2018 FINDINGS: Segmental arterial pressures obtained. The right renal artery ratio is 1.21. The resistive index 0.55. The left renal artery ratio is 1.11. The resistive index 0.44. IMPRESSION: No evidence of renal artery stenosis. Electronically signed by Willy Kuhn 10/24/2018 1:56 PM
[2018-10-25] MEDS ORDERED: MILK OF MAGNESIA PO ONE (00:47)
[2018-10-25 06:43] LABS: CALCIUM 9.1 mg/dL (8.8-10.2); CREATININE 1.5 mg/dL (0.5-0.9); POTASSIUM 4.1 mmol/L (3.5-5.1)
[2018-10-25 06:45] LABS: BASO# 0.01 X1000 (0.0-0.2); BASO% 0.2 % (0.0-0.8); EOS# 0.13 X1000 (0.0-0.7); EOS% 2.2 % (0.0-10.0); HEMATOCRIT 40.6 % (37.0-47.0); HEMOGLOBIN 13.7 g/dL (12.0-16.0); IMM GRAN# 0.01 X1000 (0.0-0.04); IMM GRAN% 0.2 % (0.0-0.5); LYMPH% 45.2 % (20.5-51.1); MCH 28.7 PG (27-31); MCHC 33.7 g/dL (33-37); MCV 85.1 FL (81-99); MONO# 0.65 X1000 (0.11-0.59); MONO% 10.9 % (1.7-9.3); MPV 12.7 FL (7.4-10.4); NEUT# 2.47 X1000 (1.4-6.5); NEUT% 41.3 % (42.2-75.2); PLT 162 X1000 (130-400); RBC 4.77 XMIL (4.2-5.4); RDW 14.5 % (11.5-14.5); WBC 5.97 X1000 (4.8-10.8)
[2018-10-25] MEDS ORDERED: LABETALOL IV PRN (08:10)
[2018-10-25] MEDS: HEPARIN SUBQ SCH ×2 (08:23→21:28)
[2018-10-25] MEDS: APRESOLINE PO SCH ×3 (08:24→17:32)
[2018-10-25] MEDS: CATAPRES PO SCH ×3 (08:24→17:32)
[2018-10-25] MEDS: NORVASC PO SCH (08:24)
[2018-10-25] MEDS: XANAX PO SCH ×3 (08:29→17:32)
[2018-10-25] MEDS ORDERED: APRESOLINE PO ONE (09:41)
--- NOTE | 2018-10-25 10:36 | PROGRESS NOTE ---
DATE: 10/25/2018 SUBJECTIVE: Patient has no major complaints. She is still requiring intermittent blood pressure medications. OBJECTIVE: Vital Signs: Blood pressure is 163/111, heart rate 66, respiratory rate of 20, temperature 98.6 degrees, 93% on room air. Cardiovascular: Regular rate and rhythm. Pulmonary: Bilateral breath sounds. Clear to auscultation. GI: Soft, nontender, nondistended. Bowel sounds are positive. Extremity Exam: No clubbing or cyanosis. Lymphatic Exam: No peripheral edema. Neurological Exam: Nonfocal. LABORATORY DATA: Stable. White count 5, hemoglobin and hematocrit 13 and 40, platelets 162. Creatinine is down to 1.5 which is close to baseline. X-RAY DATA: Her aortic ultrasound was negative. ASSESSMENT AND PLAN: 1. Malignant hypertension, hypertensive urgency. She is still not completely controlled. She is on Norvasc, clonidine. I am increasing her hydralazine. We will continue to follow. 2. Acute on chronic renal failure, likely hypertensive nephropathy. We will continue treatment and follow. At this point, she is around stage III. 3. Disposition: Still working on blood pressure control, secondary hypertension workup. I think she is stable enough to go to the floor, so we will continue to follow. cc: Lucho Vazquez MD
[2018-10-25 11:20] LABS: ALBUMIN 3.3 g/dL (3.5-5.0); CREATININE 1.6 mg/dL (0.5-0.9); POTASSIUM 4.3 mmol/L (3.5-5.1); TOTAL BILIRUBIN 0.3 mg/dL (0.20-1.00); TOTAL PROTEIN 6.9 g/dL (6.3-8.3)
--- NOTE | 2018-10-25 21:00 | ECHO REPORT ---
ORDER DATE: 10/25/2018 MEASUREMENTS: 1. Septal thickness 1.3. 2. Left ventricular internal diameter diastole 3.84. 3. Left atrium 3.2. 4. Aortic root 3.7. SUMMARY: 1. Technically difficult study due to limited parasternal acoustic window quality. Intravenous echo contrast agent Optison was utilized to enhance endocardial definition. 2. Aortic valve is not well imaged but appears to be probably trileaflet. Aortic valve opening appears unrestricted. Peak gradient across the aortic valve is 13 mmHg. There is mild aortic regurgitation. Mitral and tricuspid valves are without evidence of structural abnormality with trace tricuspid regurgitation. Pulmonic valve is not well demonstrated. The aortic root is normal in size. 3. Normal left ventricular chamber size with moderate concentric left hypertrophy is demonstrated. Left ventricle appears hyperdynamic with estimated left ejection fraction greater than 75%. No regional wall motion abnormalities are evident. Doppler suggests grade 1 left ventricular diastolic dysfunction. Gradient left ventricular outflow tract is 8 mmHg and does not appear to increase with Valsalva maneuver. Left atrium, right atrium, right ventricle are normal in size with normal right ventricular systolic function. 4. No pericardial effusion. 5. Appearance of inferior vena cava suggests normal central venous pressure. CONCLUSIONS: 1. Technically difficult study. 2. Mild aortic regurgitation. 3. Moderate concentric left hypertrophy with left ventricle appearing hyperdynamic with estimated ejection fraction greater than 75%. cc: MD Lucho Fernandez MD
--- NOTE | 2018-10-26 07:03 | Diag Imaging Result Doc PS360 ---
EXAM: CHEST-2 VIEWS HISTORY: hypoxia TECHNIQUE: Two views COMPARISON: 10/22/2018 FINDINGS: The lungs are well expanded. The heart is mildly prominent. The vessels are not distended. There are no infiltrates. No pleural effusions. IMPRESSION: Stable exam. Electronically signed by Willy Kuhn 10/26/2018 7:01 AM
[2018-10-26 07:34] LABS: BASO# 0.01 X1000 (0.0-0.2); BASO% 0.2 % (0.0-0.8); EOS# 0.16 X1000 (0.0-0.7); EOS% 2.7 % (0.0-10.0); HEMATOCRIT 41.9 % (37.0-47.0); HEMOGLOBIN 13.9 g/dL (12.0-16.0); IMM GRAN# 0.01 X1000 (0.0-0.04); IMM GRAN% 0.2 % (0.0-0.5); LYMPH# 2.29 X1000 (1.2-3.4); MCH 28.1 PG (27-31); MCHC 33.2 g/dL (33-37); MCV 84.8 FL (81-99); MONO# 0.61 X1000 (0.11-0.59); MONO% 10.4 % (1.7-9.3); MPV 12.5 FL (7.4-10.4); NEUT# 2.79 X1000 (1.4-6.5); NEUT% 47.5 % (42.2-75.2); PLT 229 X1000 (130-400); RBC 4.94 XMIL (4.2-5.4); RDW 14.8 % (11.5-14.5); WBC 5.87 X1000 (4.8-10.8)
[2018-10-26] MEDS: CATAPRES PO SCH ×3 (09:00→16:51)
[2018-10-26] MEDS: HEPARIN SUBQ SCH ×2 (09:00→20:43)
[2018-10-26] MEDS: NORVASC PO SCH (09:00)
[2018-10-26] MEDS: XANAX PO SCH ×3 (09:00→16:52)
[2018-10-26] MEDS: APRESOLINE PO SCH ×3 (09:01→16:52)
[2018-10-26] MEDS ORDERED: APRESOLINE PO ONE (12:54)
[2018-10-26] MEDS: MIRALAX PO SCH (13:10)
[2018-10-26] MEDS: LACTULOSE PO SCH ×2 (13:10→20:43)
--- NOTE | 2018-10-26 14:15 | PROGRESS NOTE ---
DATE: 10/26/2018 SUBJECTIVE: She still feels weak. She still has some headaches. Overall, blood pressure is improving but is starting to creep up again today. OBJECTIVE: Blood pressure 177/118, heart rate 80, respiratory rate 18, and temperature 97.4 degrees.Cardiovascular: Regular rate and rhythm. Pulmonary: Bilateral breath sounds clear to auscultation. GI: Soft, nontender, and nondistended. Bowel sounds are positive. LABORATORY: White count 5, hemoglobin and hematocrit 13 and 41, and platelets 229,000. I do not have any other data today. PROBLEM LIST: Malignant hypertension, still not quite controlled. I think probably one more day. She is on Norvasc. She is on clonidine. She is on hydralazine 3 times a day. We are still having somewhat of an issue with that. DISPOSITION: 1. Pending her clinical status, but continue to follow. I think if her blood pressure stabilizes, she should be able to get out of here. 2. Constipation. We will initiate a bowel regimen. 3. Acute on chronic renal failure. Her kidney function is fairly stable. We will continue to monitor, but I anticipate discharge tomorrow if she is stable. cc: Lucho Vazquez MD
[2018-10-26] MEDS ORDERED: NORCO-7.5 PO PRN (20:38)
[2018-10-26] MEDS: LABETALOL IV PRN (20:44)
[2018-10-27] MEDS: LABETALOL IV PRN (02:12)
[2018-10-27 08:25] LABS: CALCIUM 9.2 mg/dL (8.8-10.2); CREATININE 1.6 mg/dL (0.5-0.9)
[2018-10-27] MEDS: CATAPRES PO SCH ×3 (09:55→21:08)
[2018-10-27] MEDS: HEPARIN SUBQ SCH ×2 (09:55→21:08)
[2018-10-27] MEDS: LACTULOSE PO SCH ×2 (09:55→21:08)
[2018-10-27] MEDS: MIRALAX PO SCH (09:56)
[2018-10-27] MEDS: APRESOLINE PO SCH ×3 (09:56→21:08)
[2018-10-27] MEDS: NORVASC PO SCH (09:56)
[2018-10-27] MEDS: XANAX PO SCH ×3 (10:04→21:08)
[2018-10-27] MEDS: DULCOLAX PR SCH (21:33)
[2018-10-28] MEDS: LABETALOL IV PRN (04:43)
--- NOTE | 2018-10-28 05:54 | PROGRESS NOTE ---
DATE: 10/27/2018 SUBJECTIVE: The patient is seen. She is sitting up in chair. She is doing okay. She is still complaining of no bowel movement since admission despite laxatives. Overall, she is controlled though. She looks better. No headache. OBJECTIVE: Vital signs: Blood pressure is 146/101, 160/115, so still not completely under control. Cardiovascular: Regular rate and rhythm. Pulmonary: Bilateral breath sounds. Clear to auscultation. Gastrointestinal: Soft, nontender, nondistended. Bowel sounds are positive. LABORATORY DATA: No white count today. Creatinine 1.6. Prorenin and aldosterone levels are normal. Metanephrines are also normal. Cortisol was normal. PROBLEM LIST: 1. Malignant hypertension. We will continue blood pressure medications. I am going to increase her clonidine. She is on hydralazine. She is on Norvasc. 2. Constipation. We will continue to escalate her bowel regimen and follow. 3. Chronic renal failure stage 2. She seems to be overall stable. No further progression. DISPOSITION: Plan is to anticipate discharge soon, once we know her blood pressure is a bit under control, hopefully, in next 24 hours. cc: Lucho Vazquez MD
[2018-10-28 07:30] LABS: BASO# 0.01 X1000 (0.0-0.2); BASO% 0.1 % (0.0-0.8); EOS# 0.12 X1000 (0.0-0.7); EOS% 1.5 % (0.0-10.0); HEMOGLOBIN 13.5 g/dL (12.0-16.0); IMM GRAN# 0.01 X1000 (0.0-0.04); IMM GRAN% 0.1 % (0.0-0.5); LYMPH# 2.19 X1000 (1.2-3.4); LYMPH% 27.8 % (20.5-51.1); MCH 28.2 PG (27-31); MCHC 32.9 g/dL (33-37); MCV 85.8 FL (81-99); MONO# 0.74 X1000 (0.11-0.59); MONO% 9.4 % (1.7-9.3); MPV 12.7 FL (7.4-10.4); NEUT# 4.81 X1000 (1.4-6.5); NEUT% 61.1 % (42.2-75.2); PLT 226 X1000 (130-400); RBC 4.78 XMIL (4.2-5.4); WBC 7.88 X1000 (4.8-10.8)
[2018-10-28 07:45] VITALS: BP 154/96
[2018-10-28 07:52] LABS: CALCIUM 9.2 mg/dL (8.8-10.2); CREATININE 1.7 mg/dL (0.5-0.9); POTASSIUM 4.4 mmol/L (3.5-5.1)
[2018-10-28] MEDS ORDERED: CATAPRES PO SCH (09:00)
[2018-10-28] MEDS ORDERED: MIRALAX PO SCH (09:00)
[2018-10-28] MEDS ORDERED: SENOKOT PO SCH (09:00)
[2018-10-28] MEDS: LACTULOSE PO SCH (09:55)
[2018-10-28] MEDS: NORVASC PO SCH (09:56)
[2018-10-28] MEDS: XANAX PO SCH (09:56)
[2018-10-28] MEDS: APRESOLINE PO SCH (09:56)
[2018-10-28] MEDS: DULCOLAX PR SCH (09:56)
[2018-10-28] MEDS: HEPARIN SUBQ SCH (09:56)
--- NOTE | 2018-10-28 20:10 | DISCHARGE SUMMARY ---
ADMISSION DATE: 10/23/2018 DISCHARGE DATE: 10/28/2018 HOSPITAL COURSE: The patient is looking well. She has finally had a bowel movement. She feels better. Her blood pressure has resolved 154/96 currently, 146/96 before that. Heart rate is 77. I feel stable for discharge. She will be discharged on new clonidine prescription or adjusted amlodipine and hydralazine and MiraLAX. DISCHARGE CONDITION: Stable. DISCHARGE INSTRUCTIONS: I will encourage her to follow up with PCP and Dr. Hyde and Dr. Cruz. Her renal insufficiency is only at baseline. She did have some acute renal failure, but additionally she has severely uncontrolled hypertension. I think aggressive care upfront may help with trying to get her better a little bit more quickly and possibly prevent progression of the renal insufficiency to the point of renal failure. cc: Lucho Vazquez MD MTDD
--- NOTE | 2018-10-28 20:16 | DISCHARGE SUMMARY ---
ADMISSION DATE: 10/23/2018 DISCHARGE DATE: 10/28/2018 PRIMARY CARE PHYSICIAN: Dr. Hyde. ADMISSION DIAGNOSES: 1. Accelerated hypertension. 2. An acute kidney injury. 3. Gastroesophageal reflux disease. 4. Hyperlipidemia. DISCHARGE DIAGNOSES: 1. Malignant hypertension, improved. 2. Chronic renal failure stage 2. 3. Acute kidney injury resolved. 4. Gastroesophageal reflux disease. 5. Hyperlipidemia. SUMMARY OF FINDINGS: This is a 53-year-old female who presented to the ER from her primary care physician's office after she was found to have a high blood pressure, had some palpitations and shortness of breath. States she has also been having a headache and blurred vision for the past 2 weeks. States that she has been taking her medications as prescribed. Her blood pressure was 207/143 in the ER, after given hydralazine IV in the emergency room, labetalol and enalapril they were ineffective and so she was placed on a Cardene drip and admitted to the intensive care unit and we did a renal ultrasound that showed increased renal echotexture which can be seen with medical renal disease. We checked an aortic renal ultrasound that showed no evidence of renal artery stenosis. We did an echocardiogram on 10/25/2018 that showed an ejection fraction of 75%. Chest x-ray on 10/26/2018 showed a stable exam. On 10/25/2018 patient was completely off of her Cardene drip and transferred from ICU to the medical unit. Blood pressures have improved and this morning is 154/96. She is saturating 100% on room air and it is now felt that she can safely be discharged home. DISCHARGE MEDICATIONS: Include alprazolam 1 mg p.o. t.i.d., amlodipine 10 mg p.o. daily, a prescription for clonidine 0.2 mg p.o. b.i.d. #60 with 1 refill, hydralazine prescription 100 mg p.o. t.i.d. and a prescription for MiraLAX 17 g p.o. daily. FOLLOWUP: She needs to follow up with her primary care physician in 1 to 2 weeks and call the office for an appointment. TIME SPENT: 33 minutes. Dictated by TIGRE Connolly for Lucho Vazquez MD cc: TIGRE Connolly MD Dr. Awoniy
== END 2018-10-28 15:25 | disposition home or self-care (01) | DRG 305 ==
LOC: P.MEDSURG 12:47 → P.ED 12:47 → OBSVTOIN 20:14 → P.ICU 20:55 → P.MEDSURG 10-25 12:51
PROVIDERS: ATTEND Internal Medicine
CPT/HCPCS: 36415; 70450; 71010; 71020; 71045; 71046; 76770; 80048; 80053; 82088; 82533; 82570; 83835; 83880; 84156; 84244; 84300; 84443; 84484; 84540; 85025; 87205; 93005; 93306; 93976; 96365; 96375; 99285; 99291; A9270; C8929; J0360; J1644; J2270; J2405; J7030; Q9957